=== PATIENT | male | born 1985 | race Caucasian/White ===

== ENCOUNTER 2017-03-13 10:41 | Observation (INO) | payer OTHER ==
[~2017-03-13 10:41] MED LIST: ABILIFY5 MG PO; ACIDOPHILUS1 CAP PO; AZITHROMYCIN250 M1 PO; Abilify PO; BACTRIM DS1 TA1 PO; CALCIUM 600 +1 EA15 PO; CALCIUM 600 +1 EAC9 PO; DEPAKOTE; DEPAKOTE250 MG PO; DEPAKOTE500 M1 PO; DEPAKOTE500 MG PO; ETHAMBUTOL HCL400 MG PO; FERROUS SULFAT325 MG PO; FLUOXETINE; Flagyl PO; GATTEX5 MG SQ; LAMICTAL200 M2 PO; LAMICTAL25 M2 PO; LAMOTRIGINE OD100 MG PO; LEXAPRO; LIDODERM700 MG TP; METRONIDAZOLE PO; MIRTAZAPINE30 M1 PO; MIRTAZAPINE30 M2 PO; MULTIVITAMINS1 EAC7 PO; OMEPRAZOLE20 M1 PO; PHENOBARBITAL PO; PHENOBARBITAL32.4 M1 PO; PHENOBARBITAL32.4 MG PO; PHENOBARBITAL60 MG PO; PRILOSEC OTC20 M1 PO; RIFAMPIN300 M1 PO; SEROQUEL XR200 MG PO; SEROQUEL400 M1 PO; STRATTERA40 MG PO; STRATTERA80 M1 PO; TENEX1 M2 PO; TPN (ADULT)1 EA IV; TYLENOL500 MG PO; URSODIOL300 MG PO; VANCOMYCIN HCL250 M1 PO; VANCOMYCIN HCL250 MG PO; VITAMIN A; VITAMIN B-121000 MC1 PO; VITAMIN C1000 M1 PO; VITAMIN D; VITAMIN D1000 UNI2 PO; VITAMIN D250000 UNI1 PO; VITAMIN D3 PO; VITAMIN D5000 UNIT PO; VITAMIN E PO; VITAMIN E1000 UNI5 PO; [UNRECOGNIZED DRUG - CODE] PO; [UNRECOGNIZED DRUG - OTHER] PO; [UNRECOGNIZED DRUG - OTHER] PO
[2017-03-13] MEDS ORDERED: RAZADYNE PO (10:56)
[2017-03-13] MEDS ORDERED: HYDROXYZINE HCL50 M1 PO (10:57)
[2017-03-13] MEDS ORDERED: GUANFACINE HCL E4 MG PO (10:57)
[2017-03-13] MEDS ORDERED: GATTEX5 MG SC (11:27)
[2017-03-13] MEDS ORDERED: VITAMIN D1000 UNI3 PO (11:29)
[2017-03-13] MEDS ORDERED: GUANFACINE HCL E2 MG PO (11:29)
[2017-03-13 11:42] LABS: URINE APPEARANCE HAZY; URINE BILIRUBIN NEGATIVE (NEG); URINE BLOOD LARGE (NEG); URINE COLOR YELLOW; URINE GLUCOSE (UA) NEGATIVE (NEG); URINE KETONE NEGATIVE (NEG); URINE LEUKOCYTE ESTERASE NEGATIVE (NEG); URINE NITRITE NEGATIVE (NEG); URINE PROTEIN MODERATE (NEG)
[2017-03-13 11:55] LABS: BASO % 0.4 % (0-2); EOS % 0.8 % (0-7); HCT-HEMATOCRIT 38.8 % (36.0-53.5); HGB-HEMOGLOBIN 13.2 gm/dl (13.5-17.0); MCH (MEAN CORPUSCULAR HGB) 34.1 pg (28.0-32.0); MCV (MEAN CELL VOLUME) 100.3 fl (82.0-96.0); MONO % 9.4 % (0-12); MONOCYTE ABSOLUTE COUNT 0.3 tho/cmm (0.0-1.2); NEUTROPHIL ABSOLUTE COUNT 1.4 tho/cmm (1.6-8.0); NEUTROPHIL-AUTOMATED 1.4 tho/cmm (1.6-8.0); NEUTROPHILS % 51.4 % (40-80); PLATELET COUNT 90 tho/cmm (150-450); RED BLOOD COUNT 3.87 mil/cmm (4.40-5.70); RED CELL DISTRIBUTION WIDTH 14.2 % (12.4-16.4); WHITE BLOOD COUNT 2.7 tho/cmm (4.0-10.0)
[2017-03-13 12:05] LABS: INR 1.4 INR (0.9-1.1); PROTHROMBIN TIME 16.1 SECONDS (9.0-13.6)
[2017-03-13 12:06] LABS: URINE RBC 100-150 /[HPF] (0-5)
[2017-03-13 12:08] LABS: URINE EPITHELIAL CELLS 0-1 /[HPF] (0-10)
[2017-03-13 12:31] LABS: ALB/GLOB RATIO 1.6 (0.8-2.0); ALBUMIN 4.4 g/dl (3.5-5.0); ALKALINE PHOSPHATASE 133 U/L (33-138); ALT/SGPT 48 U/L (12-78); ANION GAP 24 mmol/L (0-20); AST/SGOT 24 U/L (10-40); BILIRUBIN,TOTAL 0.3 mg/dl (0.0-1.5); BLOOD UREA NITROGEN 3 mg/dl (6-24); CALCIUM 8.3 mg/dl (8.5-10.5); CARBON DIOXIDE-VENOUS 14 mmol/L (22-32); CHLORIDE 112 mmol/l (96-110); CREATININE 0.63 mg/dl (0.60-1.30); GLUCOSE 86 mg/dL (70-110); POTASSIUM 3.8 mmol/L (3.7-5.1); SODIUM 146 mmol/L (135-145); eGFR VALUE FOR BLACK >90 mL/Min
[2017-03-13 12:49] LABS: ALCOHOL (ETOH) <10 mg/dl (<10)
[2017-03-13 19:25] LABS: ALBUMIN 4.4 g/dl (3.5-5.0); ANION GAP 22 mmol/L (0-20); BLOOD UREA NITROGEN 3 mg/dl (6-24); CALCIUM 8.3 mg/dl (8.5-10.5); CARBON DIOXIDE-VENOUS 13 mmol/L (22-32); CHLORIDE 114 mmol/l (96-110); CREATININE 0.75 mg/dl (0.60-1.30); GLUCOSE 90 mg/dL (70-110); PHOSPHOROUS 2.5 mg/dl (2.5-4.9); POTASSIUM 4.4 mmol/L (3.7-5.1); SODIUM 145 mmol/L (135-145); eGFR VALUE FOR BLACK >90 mL/Min
[2017-03-13 19:41] LABS: EOS % 0.7 % (0-7); HCT-HEMATOCRIT 36.6 % (36.0-53.5); HGB-HEMOGLOBIN 12.6 gm/dl (13.5-17.0); IMMATURE GRANULOCYTES ABSOLUTE 0.01 tho/cmm (0-0.03); IMMATURE GRANULOCYTES PERCENT 0.3 % (0-0.3); LYMPH % 43.6 % (20-45); LYMPH ABSOLUTE COUNT 1.3 tho/cmm (0.8-4.5); MCH (MEAN CORPUSCULAR HGB) 33.9 pg (28.0-32.0); MCHC MEAN CORPUSCULAR HGB CONC 34.4 % (32.0-36.0); MCV (MEAN CELL VOLUME) 98.4 fl (82.0-96.0); MEAN PLATELET VOLUME 10.1 cmc (9.4-12.4); MONO % 11.7 % (0-12); MONOCYTE ABSOLUTE COUNT 0.4 tho/cmm (0.0-1.2); NEUTROPHIL ABSOLUTE COUNT 1.3 tho/cmm (1.6-8.0); NEUTROPHIL-AUTOMATED 1.3 tho/cmm (1.6-8.0); NEUTROPHILS % 43.7 % (40-80); PLATELET COUNT 82 tho/cmm (150-450); RED BLOOD COUNT 3.72 mil/cmm (4.40-5.70); RED CELL DISTRIBUTION WIDTH 14.1 % (12.4-16.4); WHITE BLOOD COUNT 3.1 tho/cmm (4.0-10.0)
[2017-03-13 19:52] LABS: ANION GAP 19 mmol/L (0-20); BLOOD UREA NITROGEN 2 mg/dl (6-24); CALCIUM 8.3 mg/dl (8.5-10.5); CARBON DIOXIDE-VENOUS 19 mmol/L (22-32); CHLORIDE 111 mmol/l (96-110); CREATININE 0.53 mg/dl (0.60-1.30); GLUCOSE 108 mg/dL (70-110); POTASSIUM 3.6 mmol/L (3.7-5.1); SODIUM 145 mmol/L (135-145); eGFR VALUE FOR BLACK >90 mL/Min
== END 2017-03-13 20:33 ==
LOC: EDMED 10:41 → EMR2 14:30 → CAR1 15:48
PROVIDERS: Emergency Medicine; Internal Medicine; ADMIT Internal Medicine
DX: E87.2 Acidosis (principal); G93.49 Other encephalopathy; D72.819 Decreased white blood cell count, unspecified; D69.6 Thrombocytopenia, unspecified; K90.9 Intestinal malabsorption, unspecified; G40.909 Epilepsy, unspecified, not intractable, without status epilepticus; K21.9 Gastro-esophageal reflux disease without esophagitis; F90.9 Attention-deficit hyperactivity disorder, unspecified type; R45.1 Restlessness and agitation; E11.9 Type 2 diabetes mellitus without complications; Z79.899 Other long term (current) drug therapy; Z90.49 Acquired absence of other specified parts of digestive tract; Z88.1 Allergy status to other antibiotic agents
CPT/HCPCS: G0480; J2060; J7030

== ENCOUNTER 2017-03-17 08:21 | Observation (INO) | payer OTHER ==
[~2017-03-17 08:21] MED LIST changes: +GATTEX5 MG SC; +GUANFACINE HCL E2 MG PO; +GUANFACINE HCL E4 MG PO; +HYDROXYZINE HCL50 M1 PO; +RAZADYNE PO; +VITAMIN D1000 UNI3 PO
[2017-03-17 09:14] LABS: BASO % 0.2 % (0-2); EOS % 0.3 % (0-7); HCT-HEMATOCRIT 36.9 % (36.0-53.5); HGB-HEMOGLOBIN 12.8 gm/dl (13.5-17.0); IMMATURE GRANULOCYTES ABSOLUTE 0.01 tho/cmm (0-0.03); IMMATURE GRANULOCYTES PERCENT 0.2 % (0-0.3); LYMPH % 21.4 % (20-45); LYMPH ABSOLUTE COUNT 1.3 tho/cmm (0.8-4.5); MCH (MEAN CORPUSCULAR HGB) 34.1 pg (28.0-32.0); MCHC MEAN CORPUSCULAR HGB CONC 34.7 % (32.0-36.0); MCV (MEAN CELL VOLUME) 98.4 fl (82.0-96.0); MEAN PLATELET VOLUME 10.8 cmc (9.4-12.4); MONO % 11.2 % (0-12); MONOCYTE ABSOLUTE COUNT 0.7 tho/cmm (0.0-1.2); NEUTROPHIL ABSOLUTE COUNT 4.2 tho/cmm (1.6-8.0); NEUTROPHIL-AUTOMATED 4.2 tho/cmm (1.6-8.0); NEUTROPHILS % 66.7 % (40-80); PLATELET COUNT 80 tho/cmm (150-450); RED BLOOD COUNT 3.75 mil/cmm (4.40-5.70); RED CELL DISTRIBUTION WIDTH 14.3 % (12.4-16.4); WHITE BLOOD COUNT 6.3 tho/cmm (4.0-10.0)
[2017-03-17 09:30] LABS: ANION GAP 21 mmol/L (0-20); BLOOD UREA NITROGEN 3 mg/dl (6-24); CARBON DIOXIDE-VENOUS 13 mmol/L (22-32); CHLORIDE 111 mmol/l (96-110); CREATININE 0.51 mg/dl (0.60-1.30); GLUCOSE 91 mg/dL (70-110); MAGNESIUM 1.7 mg/dl (1.8-2.6); POTASSIUM 4.4 mmol/L (3.7-5.1); SODIUM 141 mmol/L (135-145); eGFR VALUE FOR BLACK >90 mL/Min
[2017-03-17] MEDS ORDERED: IBUPROFEN600 M1 PO (09:38)
[2017-03-17] MEDS ORDERED: ULTRAM50 M1 PO (09:39)
[2017-03-17 13:17] LABS: ALCOHOL (ETOH) <10 mg/dl (<10)
[2017-03-17 13:24] LABS: SALICYLATE <2.8 mg/dl (2.8-20)
[2017-03-17 15:33] LABS: ANION GAP 15 mmol/L (0-20); BLOOD UREA NITROGEN 3 mg/dl (6-24); CALCIUM 8.2 mg/dl (8.5-10.5); CHLORIDE 109 mmol/l (96-110); CREATININE 0.55 mg/dl (0.60-1.30); GLUCOSE 96 mg/dL (70-110); POTASSIUM 3.9 mmol/L (3.7-5.1); SODIUM 145 mmol/L (135-145); eGFR VALUE FOR BLACK >90 mL/Min
[2017-03-17 15:37] LABS: CARBON DIOXIDE-VENOUS 25 mmol/L (22-32)
[2017-03-18 06:31] LABS: PLATELET COUNT 81 tho/cmm (150-450)
[2017-03-18 06:39] LABS: ANION GAP 8 mmol/L (0-20); BLOOD UREA NITROGEN 5 mg/dl (6-24); CALCIUM 8.8 mg/dl (8.5-10.5); CARBON DIOXIDE-VENOUS 26 mmol/L (22-32); CHLORIDE 108 mmol/l (96-110); CREATININE 0.55 mg/dl (0.60-1.30); GLUCOSE 79 mg/dL (70-110); SODIUM 138 mmol/L (135-145); eGFR VALUE FOR BLACK >90 mL/Min
[2017-03-18 06:52] LABS: POTASSIUM 4.4 mmol/L (3.7-5.1)
[2017-03-18] MEDS ORDERED: VANCOCIN HCL250 M2 PO (13:33)
== END 2017-03-18 14:20 ==
LOC: EDMED 08:21 → EMR2 11:02 → 5WE 16:50
PROVIDERS: Emergency Medicine; Nurse Practitioner; ADMIT Family Medicine
DX: E87.2 Acidosis (principal); D69.6 Thrombocytopenia, unspecified; K91.2 Postsurgical malabsorption, not elsewhere classified; R53.1 Weakness; R29.6 Repeated falls; F12.90 Cannabis use, unspecified, uncomplicated; K21.9 Gastro-esophageal reflux disease without esophagitis; M85.80 Other specified disorders of bone density and structure, unspecified site; F17.208 Nicotine dependence, unspecified, with other nicotine-induced disorders; Z90.49 Acquired absence of other specified parts of digestive tract; Z90.89 Acquired absence of other organs; Z79.899 Other long term (current) drug therapy; Z98.890 Other specified postprocedural states
CPT/HCPCS: G0378; G0480; G8978-GP-CH; G8979-GP-CH; G8980-GP-CH; J7030

== ENCOUNTER 2017-03-24 07:12 | Inpatient (IN) | payer OTHER ==
[~2017-03-24 07:12] MED LIST changes: +IBUPROFEN600 M1 PO; +ULTRAM50 M1 PO; +VANCOCIN HCL250 M2 PO
[2017-03-24] MEDS ORDERED: FLAGYL500 M1 PO (07:30)
[2017-03-24 07:39] LABS: BASO % 0.2 % (0-2); EOS % 0.4 % (0-7); HGB-HEMOGLOBIN 12.3 gm/dl (13.5-17.0); IMMATURE GRANULOCYTES ABSOLUTE 0.01 tho/cmm (0-0.03); IMMATURE GRANULOCYTES PERCENT 0.2 % (0-0.3); LYMPH % 28.1 % (20-45); LYMPH ABSOLUTE COUNT 1.3 tho/cmm (0.8-4.5); MCH (MEAN CORPUSCULAR HGB) 33.9 pg (28.0-32.0); MCHC MEAN CORPUSCULAR HGB CONC 34.2 % (32.0-36.0); MCV (MEAN CELL VOLUME) 99.2 fl (82.0-96.0); MEAN PLATELET VOLUME 10.6 cmc (9.4-12.4); MONOCYTE ABSOLUTE COUNT 0.6 tho/cmm (0.0-1.2); NEUTROPHIL ABSOLUTE COUNT 2.6 tho/cmm (1.6-8.0); NEUTROPHIL-AUTOMATED 2.6 tho/cmm (1.6-8.0); NEUTROPHILS % 58.1 % (40-80); PLATELET COUNT 111 tho/cmm (150-450); RED BLOOD COUNT 3.63 mil/cmm (4.40-5.70); RED CELL DISTRIBUTION WIDTH 13.9 % (12.4-16.4); WHITE BLOOD COUNT 4.6 tho/cmm (4.0-10.0)
[2017-03-24 07:54] LABS: ALB/GLOB RATIO 1.3 (0.8-2.0); ALBUMIN 4.3 g/dl (3.5-5.0); ALCOHOL (ETOH) <10 mg/dl (<10); ALKALINE PHOSPHATASE 148 U/L (33-138); ALT/SGPT 57 U/L (12-78); BILIRUBIN,TOTAL 0.4 mg/dl (0.0-1.5); BLOOD UREA NITROGEN 4 mg/dl (6-24); CALCIUM 8.9 mg/dl (8.5-10.5); CARBON DIOXIDE-VENOUS 15 mmol/L (22-32); CHLORIDE 111 mmol/l (96-110); CREATININE 0.66 mg/dl (0.60-1.30); GLUCOSE 89 mg/dL (70-110); LIPASE 107 U/L (73-393); SODIUM 147 mmol/L (135-145); eGFR VALUE FOR BLACK >90 mL/Min
[2017-03-24 08:05] LABS: ANION GAP 25 mmol/L (0-20); AST/SGOT 41 U/L (10-40); POTASSIUM 3.9 mmol/L (3.7-5.1)
[2017-03-24 08:17] LABS: PROCALCITONIN <0.05 ng/ml (0.05-0.09)
[2017-03-24 11:56] LABS: URINE BILIRUBIN NEGATIVE (NEG); URINE BLOOD MODERATE (NEG); URINE GLUCOSE (UA) NEGATIVE (NEG); URINE KETONE NEGATIVE (NEG); URINE LEUKOCYTE ESTERASE NEGATIVE (NEG); URINE NITRITE NEGATIVE (NEG); URINE PROTEIN NEGATIVE (NEG); URINE SPECIFIC GRAVITY 1.015 (1.003-1.030)
[2017-03-24 12:06] LABS: URINE APPEARANCE CLEAR; URINE COLOR YELLOW
[2017-03-24 12:14] LABS: URINE BACTERIA 2+; URINE EPITHELIAL CELLS 0-1 /[HPF] (0-10); URINE RBC 18-25 /[HPF] (0-5); URINE WBC 0-1 /[HPF] (0-5)
[2017-03-24 17:28] LABS: BASO % 0.2 % (0-2); EOS % 0.6 % (0-7); HCT-HEMATOCRIT 39.4 % (36.0-53.5); LYMPH % 24.3 % (20-45); LYMPH ABSOLUTE COUNT 1.3 tho/cmm (0.8-4.5); MCH (MEAN CORPUSCULAR HGB) 33.2 pg (28.0-32.0); MCV (MEAN CELL VOLUME) 100.5 fl (82.0-96.0); MEAN PLATELET VOLUME 9.6 cmc (9.4-12.4); MONO % 16.1 % (0-12); MONOCYTE ABSOLUTE COUNT 0.9 tho/cmm (0.0-1.2); NEUTROPHIL ABSOLUTE COUNT 3.1 tho/cmm (1.6-8.0); NEUTROPHIL-AUTOMATED 3.1 tho/cmm (1.6-8.0); NEUTROPHILS % 58.8 % (40-80); PLATELET COUNT 110 tho/cmm (150-450); RED BLOOD COUNT 3.92 mil/cmm (4.40-5.70); RED CELL DISTRIBUTION WIDTH 13.5 % (12.4-16.4); WHITE BLOOD COUNT 5.3 tho/cmm (4.0-10.0)
[2017-03-24 17:43] LABS: ANION GAP 19 mmol/L (0-20); BLOOD UREA NITROGEN 2 mg/dl (6-24); CALCIUM 8.8 mg/dl (8.5-10.5); CARBON DIOXIDE-VENOUS 19 mmol/L (22-32); CHLORIDE 112 mmol/l (96-110); CREATININE 0.59 mg/dl (0.60-1.30); GLUCOSE 102 mg/dL (70-110); POTASSIUM 4.4 mmol/L (3.7-5.1); SODIUM 146 mmol/L (135-145); eGFR VALUE FOR BLACK >90 mL/Min
[2017-03-25 06:02] LABS: BASO % 0.2 % (0-2); HCT-HEMATOCRIT 33.2 % (36.0-53.5); HGB-HEMOGLOBIN 11.5 gm/dl (13.5-17.0); IMMATURE GRANULOCYTES ABSOLUTE 0.01 tho/cmm (0-0.03); IMMATURE GRANULOCYTES PERCENT 0.2 % (0-0.3); LYMPH % 33.7 % (20-45); LYMPH ABSOLUTE COUNT 1.4 tho/cmm (0.8-4.5); MCH (MEAN CORPUSCULAR HGB) 33.4 pg (28.0-32.0); MCHC MEAN CORPUSCULAR HGB CONC 34.6 % (32.0-36.0); MCV (MEAN CELL VOLUME) 96.5 fl (82.0-96.0); MEAN PLATELET VOLUME 9.7 cmc (9.4-12.4); MONO % 14.6 % (0-12); MONOCYTE ABSOLUTE COUNT 0.6 tho/cmm (0.0-1.2); NEUTROPHIL ABSOLUTE COUNT 2.1 tho/cmm (1.6-8.0); NEUTROPHIL-AUTOMATED 2.1 tho/cmm (1.6-8.0); NEUTROPHILS % 50.3 % (40-80); PLATELET COUNT 102 tho/cmm (150-450); RED BLOOD COUNT 3.44 mil/cmm (4.40-5.70); RED CELL DISTRIBUTION WIDTH 13.5 % (12.4-16.4); WHITE BLOOD COUNT 4.1 tho/cmm (4.0-10.0)
[2017-03-25 06:24] LABS: ALB/GLOB RATIO 1.2 (0.8-2.0); ALBUMIN 3.6 g/dl (3.5-5.0); ALKALINE PHOSPHATASE 135 U/L (33-138); ALT/SGPT 48 U/L (12-78); ANION GAP 14 mmol/L (0-20); AST/SGOT 31 U/L (10-40); BILIRUBIN,TOTAL 0.5 mg/dl (0.0-1.5); BLOOD UREA NITROGEN 2 mg/dl (6-24); CALCIUM 8.5 mg/dl (8.5-10.5); CARBON DIOXIDE-VENOUS 20 mmol/L (22-32); CHLORIDE 112 mmol/l (96-110); CREATININE 0.47 mg/dl (0.60-1.30); GLUCOSE 86 mg/dL (70-110); POTASSIUM 3.8 mmol/L (3.7-5.1); SODIUM 142 mmol/L (135-145); eGFR VALUE FOR BLACK >90 mL/Min
--- NOTE | 2017-03-25 08:30 | NUR ---
PT REFUSING TO LET RN FEEL PULSES ON FEET AND ASSESS FOOT.
--- NOTE | 2017-03-25 12:00 | NUR ---
DR. GRIMES TO ROOM TO ASSESS. ONCE DR. GRIMES LEFT PT STATES " OUCH, WHY DIDN'T HE LOOK AT MY FOOT." MOTHER STATES " SHASHA, HE DID HE PRESSES ON YOUR FOOT AND YOU DIDN'T SAY ANYTHING ABOUT IT HURTING."
[2017-03-26 05:07] LABS: BASO % 0.2 % (0-2); EOS % 0.5 % (0-7); HCT-HEMATOCRIT 31.5 % (36.0-53.5); IMMATURE GRANULOCYTES ABSOLUTE 0.01 tho/cmm (0-0.03); IMMATURE GRANULOCYTES PERCENT 0.2 % (0-0.3); LYMPH % 45.9 % (20-45); LYMPH ABSOLUTE COUNT 1.9 tho/cmm (0.8-4.5); MCH (MEAN CORPUSCULAR HGB) 33.2 pg (28.0-32.0); MCHC MEAN CORPUSCULAR HGB CONC 34.9 % (32.0-36.0); MCV (MEAN CELL VOLUME) 95.2 fl (82.0-96.0); MEAN PLATELET VOLUME 9.4 cmc (9.4-12.4); MONO % 10.6 % (0-12); MONOCYTE ABSOLUTE COUNT 0.4 tho/cmm (0.0-1.2); NEUTROPHIL ABSOLUTE COUNT 1.7 tho/cmm (1.6-8.0); NEUTROPHIL-AUTOMATED 1.7 tho/cmm (1.6-8.0); NEUTROPHILS % 42.6 % (40-80); PLATELET COUNT 94 tho/cmm (150-450); RED BLOOD COUNT 3.31 mil/cmm (4.40-5.70); RED CELL DISTRIBUTION WIDTH 13.4 % (12.4-16.4); WHITE BLOOD COUNT 4.1 tho/cmm (4.0-10.0)
[2017-03-26 05:19] LABS: ANION GAP 13 mmol/L (0-20); BLOOD UREA NITROGEN 3 mg/dl (6-24); CALCIUM 8.4 mg/dl (8.5-10.5); CARBON DIOXIDE-VENOUS 22 mmol/L (22-32); CHLORIDE 111 mmol/l (96-110); CREATININE 0.57 mg/dl (0.60-1.30); GLUCOSE 83 mg/dL (70-110); MAGNESIUM 1.8 mg/dl (1.8-2.6); POTASSIUM 3.9 mmol/L (3.7-5.1); SODIUM 142 mmol/L (135-145); eGFR VALUE FOR BLACK >90 mL/Min
[2017-03-26 10:34] LABS: URINE BILIRUBIN NEGATIVE (NEG); URINE BLOOD SMALL (NEG); URINE GLUCOSE (UA) NEGATIVE (NEG); URINE KETONE NEGATIVE (NEG); URINE LEUKOCYTE ESTERASE NEGATIVE (NEG); URINE NITRITE NEGATIVE (NEG); URINE PROTEIN NEGATIVE (NEG)
[2017-03-26 10:37] LABS: URINE APPEARANCE CLEAR; URINE COLOR PALE YELLOW
[2017-03-26 10:53] LABS: URINE EPITHELIAL CELLS 0 /[HPF] (0-10); URINE RBC 0-2 /[HPF] (0-5); URINE WBC 0 /[HPF] (0-5)
[2017-03-26] MEDS ORDERED: VANCOCIN HCL250 M2 PO (11:27)
[2017-03-26] MEDS ORDERED: TYLENOL325 M2 PO (11:33)
== END 2017-03-26 13:20 | DRG 640 ==
LOC: EDMED 07:12 → EMR2 09:09 → 5WE 11:13 → PCUA 19:28
PROVIDERS: Emergency Medicine; Internal Medicine; Nurse Practitioner Acute Care; ADMIT Family Medicine
DX: E87.2 Acidosis (principal); G93.41 Metabolic encephalopathy; K91.2 Postsurgical malabsorption, not elsewhere classified; D69.6 Thrombocytopenia, unspecified; G40.909 Epilepsy, unspecified, not intractable, without status epilepticus; F90.9 Attention-deficit hyperactivity disorder, unspecified type; R45.1 Restlessness and agitation; S82.892A Other fracture of left lower leg, initial encounter for closed fracture; W19.XXXA Unspecified fall, initial encounter; R31.9 Hematuria, unspecified
CPT/HCPCS: G0480; J1630; J2060; J7030